=== PATIENT | male | born 1950 | race Caucasian/White ===

== ENCOUNTER 2022-08-25 12:02 | Outpatient (CLI) | payer MEDICARE | END 2022-08-25 12:03 | disposition home or self-care (01) | LOC: CSHMRI 12:02 | PROVIDERS: ATTEND Urology | DX: R97.20 Elevated prostate specific antigen [PSA] (principal); Z80.42 Family history of malignant neoplasm of prostate | CPT/HCPCS: 72197; 82565 ==